=== PATIENT | female | born 1960 | race Caucasian/White ===

== ENCOUNTER 2016-08-20 15:54 | Emergency (ER) | payer OTHER ==
--- NOTE | ~2016-08-20 | CR72 ---
[facility] A Service of [facility] [place] RADIOLOGY TEXT RESULTS PATIENT: SAKINA SUTHERLAND LOCATION: SED : 64 UNIT #: [id number] AGE: [address]: Juli Muñoz APRN SEX: F ORDER DR: [id number] [address] [address] [id number] E MR#: [id number] Acc #: [id number] NAME: SAKINA SUTHERLAND. : 1960 SEX: F STUDY DATE/TIME: 08/20/2016 16:30 UNIT: SED ROOM: STUDY DESCRIPTION: CR Chest Single View Portable Attending Physician: Juli Muñoz A.P.R.N. Ordering Physician: Abdelrahman Birmingham M.D. Primary Care Physician: Moraima Sánchez M.D. MEDICAL IMAGING REPORT This report is preliminary unless electronic signature is present. EXAM Portable chest. HISTORY Cough, congestion, and shortness of breath over the past week. TECHNIQUE Single view of the chest was obtained. COMPARISON STUDIES 10/03/2015 FINDINGS A single AP portable view of the chest shows both lungs to be clear. The heart is normal in size. The mediastinal contour is normal. No significant bone abnormalities are seen. IMPRESSION Normal portable chest. Dictated by... Griffin Plunkett M.D. THIS IS AN ELECTRONICALLY VERIFIED REPORT Griffin Plunkett M.D. at 08/22/2016 11:01 AM RAJNI/ravinder TD: 08/21/2016 10:49 JOB #: [id number] [facility] A Service [facility] RADIOLOGY TEXT RESULTS PATIENT: SAKINA SUTHERLAND LOCATION: SED : 64 UNIT #: [id number] AGE: [address]: Juli Muñoz APRN SEX: F ORDER DR: MEDICAL IMAGING REPORT Page 1 of 1
[~2016-08-20 15:54] MED LIST: ALBUTEROL17 GM; ALL DAY ALLERGY10 M3; ATENOLOL; ATENOLOL PO; ATENOLOL50 MG; BACTRIM DS TABL1 TAB PO; CAPOZIDE; DIFLUCAN PO; FAMOTIDINE PO; FEROSUL325 ( 651; FLEXERIL10 MG; FLEXERIL10 MG PO; FLONASE ALLERG9.9 ML INH; FLOVENT DI50 MCG/DIS; HCTZ; HCTZ PO; HYDROCHLOROTHIA25 MG PO; IBUPROFEN800 MG PO; KCL PO; LIPITOR20 MG; LISINOPRIL PO; MONTELUKAST SOD10 MG; NAPROSYN500 MG PO; PHENERGAN PO; PRINIVIL40 MG; ROBAXIN 750750 M1; SYMBICORT; TENORMIN50 MG PO; ULTRAM PO; VOLTAREN75 MG; ZOCOR; ZOLOFT
[2016-08-20 16:53] LABS: INFLUENZA A NEG (NEG); INFLUENZA B NEG (NEG)
== END 2016-08-20 18:22 | disposition home or self-care (01) ==
LOC: SED 15:54
PROVIDERS: Emergency Medicine
DX: J20.9 Acute bronchitis, unspecified (principal); J45.909 Unspecified asthma, uncomplicated; E78.5 Hyperlipidemia, unspecified; F17.200 Nicotine dependence, unspecified, uncomplicated
CPT/HCPCS: 71010; 87804; 94640; 96361; 96374; 99284

== ENCOUNTER 2016-10-18 00:25 | Emergency (ER) | payer OTHER ==
--- NOTE | ~2016-10-18 | CT52 ---
[facility] A Service of [facility] RADIOLOGY TEXT RESULTS PATIENT: SAKINA SUTHERLAND LOCATION: SED : 64 UNIT #: [id number] AGE: [address]: Dave Benavides MD SEX: F ORDER DR: [id number] [place] [id number] E MR#: [id number] Acc #: [id number] NAME: SAKINA SUTHERLAND. : 1960 SEX: F STUDY DATE/TIME: 10/18/2016 01:18 UNIT: SED ROOM: STUDY DESCRIPTION: CT Cervical Spine Wo Cont Attending Physician: Dave Benavides M.D. Ordering Physician: Dave Benavides M.D. Primary Care Physician: Moraima Sánchez M.D. MEDICAL IMAGING REPORT This report is preliminary unless electronic signature is present. EXAM Cervical spine CT, 10/18/2016 at 0118 hours INDICATION Patient blacked out fell tonight. Neck pain since the fall. TECHNIQUE Axial images were obtained through the cervical spine without contrast. Multiplanar reformats were obtained. No comparison. This CT exam was performed with one or more of the following radiation dose reduction techniques: automatic exposure control, adjustment of mA and/or kV according to patient size, and iterative reconstruction. FINDINGS There is subtle grade 1 anterolisthesis of C4 on C5. Alignment is otherwise normal. There are no acute fractures. At C2-3, the disc is normal. There is bilateral facet arthropathy. At C3-4, the disc is normal. There is mild bilateral facet arthropathy. At C4-5, there is mild spondylolisthesis with bilateral facet arthropathy, right greater than left. Minimal left-side foraminal narrowing due to uncovertebral spurring. At C5-6, there is loss of disc height with a broad-based posterior disc osteophyte complex. This results in mild bilateral foraminal stenosis but no central stenosis. At C6-7, there is broad-based posterior disc osteophyte complex. There is no significant central canal or foraminal narrowing. [facility] A Service of [facility] RADIOLOGY TEXT RESULTS PATIENT: SAKINA SUTHERLAND LOCATION: [facility] [place] 64 UNIT #: [id number] AGE: [address]: Dave Benavides MD SEX: F ORDER DR: At C7-T1, the disc is within normal limits. Incidental note is made of bilateral carotid calcifications. IMPRESSION 1. No acute fracture. 2. Multilevel degenerative disc disease and facet arthropathy as detailed above. There is also very mild grade 1 spondylolisthesis at C4-5. Dictated by... Griffin Cintron Jr., M.D. THIS IS AN ELECTRONICALLY VERIFIED REPORT Griffin Cintron Jr., M.D. at 10/18/2016 5:56 AM LATOSHA/ellyn TD: 10/18/2016 04:07 JOB #: [id number] MEDICAL IMAGING REPORT Page 1 of 1
--- NOTE | ~2016-10-18 | EKG ---
PATIENT: SAKINA SUTHERLAND UNIT #: [id number] Ventricular Rate: 68 BPM Atrial Rate: 68 BPM P-R Interval: 176 ms QRS Duration: 90 ms Q-T Interval: 412 ms QTC Calculation(Bezet): 438 ms P [place]: 61 degrees Calculated R [place]: 10 degrees Calculated T [place]: 16 degrees Diagnosis Line: Normal sinus rhythm Diagnosis Line: Baseline wander Normal ECG Diagnosis Line: When compared with ECG of 03-OCT-2015 19:43, Diagnosis Line: Premature ventricular complexes are no longer Diagnosis Line: Present Diagnosis Line: Confirmed by NOY CASTILLO MD ([id number]) on 10/19/2016 Diagnosis Line: 10:22:41 AM INTERPRETING MD: ANNA VERA
--- NOTE | ~2016-10-18 | CT71 ---
[facility] A Service of [facility] RADIOLOGY TEXT RESULTS PATIENT: SAKINA SUTHERLAND LOCATION: SED : 64 UNIT #: [id number] AGE: [address]: Dave Benavides MD SEX: F ORDER DR: [id number] [place] [address] [id number] E MR#: [id number] Acc #: [id number] NAME: SAKINA SUTHERLAND : 1960 SEX: F STUDY DATE/TIME: 10/18/2016 01:26 UNIT: SED ROOM: STUDY DESCRIPTION: CT Head Wo Contrast Attending Physician: Dave Benavides M.D. Ordering Physician: Dave Benavides M.D. Primary Care Physician: Moraima Sánchez M.D. MEDICAL IMAGING REPORT This report is preliminary unless electronic signature is present. EXAM Head CT 10/18/2016 at 01:26 INDICATION Patient blacked out and fell tonight. Patient reports generalized pain. Laceration above the left eye. Patient has numbness on the left side. FINDINGS Axial images were obtained from the base to the vertex without contrast. Comparison made with 02/03/2012. This CT exam was performed with one or more of the following radiation dose reduction techniques: automatic exposure control, adjustment of mA and/or kV according to patient size, and iterative reconstruction. Ventricular size and configuration remain normal. No acute infarct or hemorrhage is seen. There are no masses. Atherosclerotic calcifications noted in the carotid siphons. There is no skull fracture. There is some mild soft tissue swelling in the left parietal scalp. IMPRESSION Mild left parietal scalp swelling. Otherwise negative head CT. Dictated by... Griffin Cintron Jr., M.D. THIS IS AN ELECTRONICALLY VERIFIED REPORT Griffin Cintron Jr., M.D. at 10/18/2016 5:56 AM LATOSHA/ellyn [facility] A Service [facility] RADIOLOGY TEXT RESULTS PATIENT: SAKINA SUTHERLAND LOCATION: SED : 64 UNIT #: [id number] AGE: [address]: Dave Benavides MD SEX: F ORDER DR: TD: 10/18/2016 04:05 JOB #: [id number] MEDICAL IMAGING REPORT Page 1 of 1
[2016-10-18] MEDS ORDERED: HYDROCHLOROTHIA25 MG (00:44)
[2016-10-18] MEDS ORDERED: HYDROXYZINE PAM25 MG (00:44)
[2016-10-18 01:15] LABS: BASOPHIL# 0.1 X10e3 (0-0.3); BASOPHIL% 1.3 % (0-2.5); EOSINOPHIL# 0.5 X10e3 (0-0.7); EOSINOPHIL% 6.8 % (0.0-7.0); HEMATOCRIT 41.7 % (35.0-45.0); HEMOGLOBIN 13.9 gm/dL (12.0-16.0); LYMPHOCYTE# 2.2 X10e3 (1.0-3.5); MEAN CELL VOLUME 86.8 FL (83-96); MEAN CORPUSCULAR HGB CONC 33.4 g/dL (30-36); MONOCYTE# 0.5 X10e3 (0-1.0); MONOCYTE% 6.1 % (3.0-12.0); NEUTROPHIL# 4.6 X10e3 (1.5-7.1); NEUTROPHIL% 57.8 % (40-75); PLATELET COUNT 221 X10e3 (140-420); RED BLOOD COUNT 4.81 X10e (3.90-5.30); RED CELL DISTRIBUTION WIDTH 14.3 % (11.0-15.5)
[2016-10-18 01:17] LABS: DIFF IND NO
[2016-10-18 01:30] LABS: CALCIUM SERUM 9.4 mg/dL (8.4-10.2); CREATININE SERUM 0.5 mg/dL (0.6-1.4); GLOM FILT RATE Estimated 110.5 mL/min (>60); POTASSIUM 3.7 mmol/L (3.5-5.1)
[2016-10-18 02:03] LABS: URINE SOURCE CLEAN CATCH
[2016-10-18 02:06] LABS: URINE APPEARANCE CLEAR; URINE BILIRUBIN NEG (NEG); URINE BLOOD NEG (NEG); URINE COLOR YELLOW; URINE GLUCOSE NEG (NORM); URINE KETONE NEG (NEG); URINE LEUKOCYTE ESTERASE 1+ (NEG); URINE NITRATE NEG (NEG); URINE PH 5.5 (5-8); URINE PROTEIN NEG (NEG); URINE SPECIFIC GRAVITY <=1.005 (1.003-1.035); URINE UROBILINOGEN 0.2 MG/DL (NORM)
[2016-10-18 02:07] LABS: MICRO INDICATED? YES
[2016-10-18 02:09] LABS: CULTURE INDICATED? NO; URINE BACTERIA NEG (NEG); URINE MUCUS PRESENT; URINE RBC 0-2 /[HPF] (0-2); URINE SQUAMOUS EPITHELIAL CELL FEW /[HPF]; URINE TRANSITIONAL EPI CELLS FEW /[HPF]
[2016-10-18 02:15] LABS: AMPHETAMINE NEG (NEG); BARBITURATES NEG (NEG); BENZODIAZEPINES NEG (NEG); COCAINE NEG (NEG); MARIJUANA POS (NEG); OPIATES NEG (NEG); TRICYCLIC ANTIDEPRESSANTS POS (NEG); U METHADONE NEG (NEG)
== END 2016-10-18 03:00 | disposition home or self-care (01) ==
LOC: SED 00:25
PROVIDERS: Emergency Medicine
DX: S09.90XA Unspecified injury of head, initial encounter (principal); S16.1XXA Strain of muscle, fascia and tendon at neck level, initial encounter; S80.212A Abrasion, left knee, initial encounter; F10.10 Alcohol abuse, uncomplicated; Y90.8 Blood alcohol level of 240 mg/100 ml or more; J45.909 Unspecified asthma, uncomplicated; I10 Essential (primary) hypertension; Z79.899 Other long term (current) drug therapy; W18.00XA Striking against unspecified object with subsequent fall, initial encounter; Y92.9 Unspecified place or not applicable
CPT/HCPCS: 36415; 70450; 72125; 80048; 80307; 81003; 85025; 93005; 96360; 99284; G0480